=== PATIENT | female | born 1965 | race Caucasian/White ===

== ENCOUNTER 2019-07-22 17:06 | Emergency (ER) | payer OTHER ==
--- OUTSIDE RECORDS SUMMARY | 2019-07-22 17:12 | XMS REPORT | Continuity of Care Document ---
:1965 External Reference #:[id number] Author Name REGINALDO Morrell (transmitted by agent of provider Heather Sanford) Address [address] [facility], [place] [address] Care Team Providers Name Role Phone Faiza Bowen NP - Family Care Team Information [employer] Operator [phone] Danae Ross MD - Family Care Team Information Tr[employer] Bur[employer] Operator [phone] Medicine Problems Active Problems Provider Date Moderate recurrent major depression Luis E Kitchen M.D. Onset: 04/12/2019 Skin sensation disturbance Luis E Kitchen M.D. Onset: 04/12/2019 Amnesia Luis E Kitchen M.D. Onset: 04/12/2019 Social History Type Date Description Comments Sex Unknown Tobacco Use Start: Unknown Never Smoked Cigarettes Smoking Status Reviewed: 06/30/19 Never Smoked Cigarettes ETOH Use Denies alcohol use Tobacco Use Start: Unknown Patient has never smoked grew up with second-hand smoke Allergies, Adverse Reactions, Alerts Active Allergies Reaction Severity Comments Date Penicillin Difficulty breathing, Hives 09/13/2018 Tetracycline Hives 09/13/2018 Sulfa Antibiotics Hives 09/13/2018 Lamictal throat closing Severe 04/12/2019 Medications Active Medications SIG Qnty Indications Ordering Provider Date Estriol Vaginal Cream apply one gram hs 50gm N95.1 Kay 04/04/2019 .5MG/Gram x7 then one gram Yen, PA 1-2 x weekly [place] apply one patch 4units N95.9 Kay 01/10/2019 0.025mg/24HR weekly Yen, PA Patches Weekly [place] Thyroid take one tablet 30tabs E03.9 Kay 11/16/2018 90mg every day on Yen, PA Tablets empty stomach Ginko Biloba 60MG 1 tablet by mouth Suzi Andersen, 11/15/2018 three times daily M.D. prn Prometrium one capsule every 30caps N95.9 Kay 10/05/2018 200mg night at bedtime, Yen PA Capsules 2 weeks on, 2 weeks off Bupropion HCL ER (SR) 1 by mouth every Unknown day 150mg Tablets ER 12HR Vitamin B Complex-C one by mouth Unknown daily Capsules [place] Orotate 2.5 mg daily Unknown Probiotic 1 by mouth every Unknown Capsules day Ortho Thyroid one capsule by Unknown mouth twice daily [facility] Fish Oil two capsules by Unknown 1000mg mouth daily Capsules [facility] Calcium Citrate three tablet by Unknown +D mouth daily [id number] Tablets Vitamin K2-7 once daily Unknown Vitamin E-200 1 by mouth every Unknown 200Unit day Capsules Vitamin D-3 1 by mouth once Unknown 1000Unit weekly Capsules Fenugreek 2 capsules by Unknown mouth daily prn Black Cohosh 3 capsules by Unknown mouth daily prn Nettle 2 capsules by Unknown mouth daily prn Chasteberry 2 capsules by Unknown mouth daily prn Vitanica Cramp Bark prn Unknown Formula Turmeric 1 by mouth twice Unknown 500mg Capsules daily prn Tee's Purse 20 drops in water Unknown Tincture 3 times daily prn Biotin 1 by mouth every Unknown 5mg Capsules day Magnesium 1 by mouth every Unknown 300mg day Capsules Flovent HFA inhale 2 puffs by Unknown 44mcg/Act mouth twice a day Aerosol prn Proair HFA 2 puffs every 4 Unknown 108(90Base) hours as needed mcg/Act Aerosol Immunizations Description No Information Available Vital Signs Date Vital Result Comment 06/30/2019 10:00am Height 63 inches 5'3" Weight 151.12 lb with boots Heart Rate 109 /min BP Systolic 119 mmHg BP Diastolic 81 mmHg Body Temperature 97.3 F O2 % BldC Oximetry 97 % BMI (Body Mass Index) 26.8 kg/m2 05/23/2019 9:53am Height 63 inches 5'3" Weight 150.00 lb Heart Rate 105 /min BP Systolic 100 mmHg BP Diastolic 68 mmHg Body Temperature 98.2 F O2 % BldC Oximetry 96 % BMI (Body Mass Index) 26.6 kg/m2 Results Test Acquired Date Facility Test Result H/L Range Note Laboratory test 04/12/2019 [facility] Erythrocyte Sed 1 mm/Hr Normal 0-29 [address] [place] [address] [phone] C Reactive Protein < 1.00 mg/L Normal <8.01 2 Methylmalonic Acid Mma 0.13 nmol/mL <=0.40 3 Protein 04/12/2019 [facility] Total 6.4 g/dL 6.3 - Electrophoresis [address] Protein(Pep) 7.9 [place] [address] [phone] Albumin 3.7 g/dL 3.4-4.7 Alpha-1 Globulin 0.2 g/dL 0.1-0.3 Alpha-2 Globulin 0.8 g/dL 0.6-1.0 Beta Globulin 0.9 g/dL 0.7-1.2 Gamma Globulin 0.8 g/dL 0.6-1.6 Albumin/Globulin Ratio 1.34 Impression See Comment 4 Laboratory 04/04/2019 [facility] TSH (Thyroid 0.59 Normal 0.34 -5.[address] Stim Horm) mcIU/[place] [address] [phone] T3 Free 3.10 pg/mL Normal 2.5-3.9 Free T4 (Free Thyroxine) 0.93 ng/dL Normal 0.61-1.12 Thyroperoxidase AB 5.50 IU/mL Normal <9 CBC Auto 02/22/2019 [facility] White Blood 5.2 10^3/uL Normal 3.5-10.[address] [place] [address] [phone] Red Blood Count 5.20 10^6/uL High 3.70-4.87 Hemoglobin 15.5 g/dL Normal 12.0-16.0 Hematocrit 46 % Normal 35-47 Mean Corpuscular Volume 89 fL Normal 80-97 Mean Corpuscular Hemoglobin 30 pg Normal 27-31 Mean Corpuscular HGB Conc 34 g/dL Normal 31-36 Red Cell Distribution Width 13 % Normal 10-15 Platelet Count 214 10^3/uL Normal 150-450 Mean Platelet Volume 10.5 fL High 7.4-10.4 Abs Neutrophils 3.0 10^3/uL Normal 1.5-7.7 Abs Lymphocytes 1.7 10^3/uL Normal 1.0-4.8 Abs Monocytes 0.3 10^3/uL Normal 0-0.8 Abs Eosinophils 0.2 10^3/uL Normal 0-0.6 Abs Basophils 0.0 10^3/uL Normal 0-0.2 Abs Nucleated RBC 0.0 10^3/uL Granulocyte % 58.0 % Lymphocyte % 32.5 % Monocyte % 5.5 % Eosinophil % 3.3 % Basophil % 0.7 % Nucleated Red Blood Cells % 0.1 Comp Metabolic 02/22/2019 [facility] Sodium 142 mmol/L Normal 135-[address] [place] [address] [phone] Potassium 4.2 mmol/L Normal 3.5-5.0 Chloride 108 mmol/L Normal 101-111 Co2 Carbon Dioxide 27 mmol/L Normal 22-32 Anion Gap 7 mmol/L Normal 2-11 Glucose 108 mg/dL High 70-100 Blood Urea Nitrogen 19 mg/dL Normal 6-24 Creatinine 0.83 mg/dL Normal 0.51-0.95 BUN/Creatinine Ratio 22.9 High 8-20 Calcium 10.1 mg/dL Normal 8.6-10.3 Total Protein 6.7 g/dL Normal 6.4-8.9 Albumin 4.5 g/dL Normal 3.2-5.2 Globulin 2.2 g/dL Normal 2-4 Albumin/Globulin Ratio 2.0 Normal 1-3 Total Bilirubin 0.40 mg/dL Normal 0.2-1.0 Alkaline Phosphatase 42 U/L Normal 34-104 Alt 13 U/L Normal 7-52 Ast 15 U/L Normal 13-39 Egfr Non- 71.6 >60 Egfr 86.7 >60 5 Laboratory test 02/22/2019 [facility] Ferritin 56.3 ng/mL Normal 11-307 [address] [place] [address] [id number] [phone] Vitamin B12 904 pg/mL Normal 180-914 7 Vitamin D Total 25(Oh) 60.9 ng/mL High 20-50 8 Folic Acid (Folate) > 20.00 ng/mL >3.99 9 Lyme Disease AB 02/22/2019 [facility] IgG Immunoblot Negative Negative Immunoblot WB [address] [place] [address] [phone] IgG detected against None kDa IgM Immunoblot Negative Negative IgM detected against None kDa Lyme Disease Interpretation See Comment 10 Laboratory 01/10/2019 [facility] T3 Reverse 15 ng/dL 10 11 test finding [address] [place] [address] [id number] [phone] MTHFR 01/10/2019 [facility] MTHFR Heterozygous Abnormal Negative Mutation [address] [place] [address] C677T [place] [address] Mutation [phone] MTHFR Interpretation See Comment 12 MTHFR Reviewed By Fozia Shanks M.D. MTHFR [id number] Mutation Heterozygous Abnormal Negative Mthac Interpretation See Comment 13 Mthac Reviewed By Fozia Shanks M.D. 14 Laboratory 01/08/2019 [facility] TSH (Thyroid 1.04 Normal 0.34 -5.60 test finding [address] [place] [address] Stim Horm) mcIU/mL [place], [place] [id number] [phone] Free T4 (Free Thyroxine) 1.01 ng/dL Normal 0.61-1.12 T3 Total 127 ng/dL Normal 87-178 1 Copy Result to: DANAE ROSS ([id number]) 2 Copy Result to: DANAE ROSS ([id number]) 3 ADDITIONAL INFORMATION This test was developed and its performance characteristics determined by [facility] in a manner consistent with CLIA requirements. This test has not been cleared or approved by the U.S. Food and Drug Administration. Test Performed by: [facility] - [facility] [address] [place] [address] 4 RESULT: No apparent monoclonal protein on serum electrophoresis. Test Performed by: [facility] - [facility] [address] [place] [address] 5 Because ethnic data is not always readily available, this report includes an eGFR for both -Americans and non- Americans. The National Kidney Disease Education Program (NKDEP) does not endorse the use of the MDRD equation for patients that are not between the ages of 18 and 70, are , have extremes of body size, muscle mass, or nutritional status, or are non- or non-. According to the National Kidney Foundation, irrespective of diagnosis, the stage of the disease is based on the level of kidney function: Stage Description GFR(mL/min/1.73 m(2)) 1 Kidney damage with normal or decreased GFR 90 2 Kidney damage with mild decrease in GFR 60-89 3 Moderate decrease in GFR 30-59 4 Severe decrease in GFR 15-29 5 Kidney failure <15 (or dialysis) 6 Copy Result to: KAY BARLOW ([phone]) [id number] Normal Range 180 to 914 Indeterminate Range 145 to 180 Deficient Range <145 8 Total 25-Hydroxyvitamin D2 and D3 (25-OH-VitD) <10 ng/mL (severe deficiency) 10-19 ng/mL (mild to moderate deficiency) 20-50 ng/mL (optimum levels) 51-80 ng/mL (increased risk of hypercalciuria) >80 ng/mL (toxicity possible) 9 Copy Result to: KAY BARLOW ([phone] [id number] Specific serologic response to B. burgdorferi infection is not detected, but cannot rule out early infection during which low or undetectable antibody levels to B. burgdorferi may be present. If clinically indicated, a new serum specimen should be submitted in 7-14 days. ADDITIONAL INFORMATION Per CDC criteria, the Lyme IgG Immunoblot is interpreted as positive if IgG-class antibodies are detected to >=5 B. burgdorferi proteins, and the Lyme IgM Immunoblot is interpreted as positive if IgM-class antibodies are detected to >=2 B. burgdorferi proteins. Immunoblot patterns not meeting these criteria should not be interpreted as positive. Epitopes from certain B. burgdorferi proteins (e.g., p41) are conserved across other bacteria, which may lead to the detection of IgM- and/or IgG-class antibodies on the Lyme disease immunoblots in patients without Lyme disease. Immunoblot should only be ordered on specimens that are positive or equivocal by a FDA-licensed Lyme disease antibody screening test (e.g., EIA). Results of the Lyme IgM immunoblot should not be considered in patients with >= 30 days of symptoms. Test Performed by: [facility] [employer] - [address] [address] 11 ADDITIONAL INFORMATION This test was developed and its performance characteristics determined by [facility] in a manner consistent with CLIA requirements. This test has not been cleared or approved by the U.S. Food and Drug Administration. 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 MTHFR C677T carriers are not at increased risk for thrombosis in the absence of hyperhomocysteinemia. In the absence of alternative causes, heterozygous carriers of MTHFR C677T are not at increased risk for hyperhomocysteinemia. Hyperhomocysteinemia is a relatively weak risk factor for both venous thromboembolism and arterial thrombosis. The MTHFR C677T gene mutation test does not detect other causes of hyperhomocysteinemia due to acquired disorders (renal failure, zinc deficiency, leukemia, psoriasis, or antifolate drug therapy). If clinically indicated, suggest Coagulation Consultation 64048 (Thrombophila Profile) to complete the evaluation for an inherited or acquired thrombosing disorder (i.e., thrombophilia). Consider genetic consultation and counseling of potentially affected family members regarding laboratory testing. ADDITIONAL INFORMATION This test is a direct mutation analysis using PCR amplification, signal generation and release by cleavage of sequence specific alleles ([employer], [place], [place], [place]). This test has been modified from the needle felt making machine operator's instructions. Its performance characteristics were determined by [facility] in a manner consistent with CLIA requirements. This test has not been cleared or approved by the U.S. Food and Drug Administration. 13 This individual DOES have the Methylenetetrahydrofolate reductase (MTHAC) Z1403L gene mutation on ONE allele (heterozygous mutant). MTHAC B0382S carriers are not at increased risk for thrombosis in the absence of hyperhomocysteinemia. In the absence of alternative causes, heterozygous carriers of MTHAC V2608V are not at increased risk for hyperhomocysteinemia. Hyperhomocysteinemia is a relatively weak risk factor for both venous thromboembolism and arterial thrombosis. The MTHAC L9779I gene mutation test does not detect other causes of hyperhomocysteinemia due to acquired disorders (renal failure, zinc deficiency, leukemia, psoriasis, or antifolate drug therapy). If clinically indicated, suggest Coagulation Consultation 68027 (Thrombophila Profile) to complete the evaluation for an inherited or acquired thrombosing disorder (i.e., thrombophilia). Consider genetic consultation and counseling of potentially affected family members regarding laboratory testing. ADDITIONAL INFORMATION This test is a direct mutation analysis using PCR amplification, signal generation and release by cleavage of sequence specific alleles ([employer], [place], [place], [place]). This test has been modified from the needle felt making machine operator's instructions. Its performance characteristics were determined by [facility] in a manner consistent with CLIA requirements. This test has not been cleared or approved by the U.S. Food and Drug Administration. 14 This test is a direct mutation analysis using PCR amplification, signal generation and release by cleavage of sequence specific alleles ([employer], [place], [place], [place]). This test has been modified from the needle felt making machine operator's instructions. Its performance characteristics were determined by [facility] in a manner consistent with CLIA requirements. This test has not been cleared or approved by the U.S. Food and Drug Administration. Test Performed by: [address] [address] Procedures Date Code Description Status 04/26/2019 86911 Nerve Conduction 07-08 Studies Completed 04/26/2019 62465 Needle Electromyography Complete, Five Or More Muscles Completed Studied 04/26/2019 94419 Needle Electromyography Each Extremity W/Related Completed Paraspinal Areas 07/09/2017 91055001 Mammogram Completed 09/17/2015 [id number] Colonoscopy Completed Medical Devices Description No Information Available Encounters Type Date Location Provider Dx Diagnosis Office Visit 05/17/2019 [facility] Zhen Linares, R41.3 Other amnesia 10:30a [facility] N.P. R20.2 Paresthesia of skin F33.1 Major depressive disorder, recurrent, moderate Office Visit 04/12/2019 10:30a [facility] Luis E Kitchen, R41.3 Other amnesia [facility] Kemar R20.2 Paresthesia of skin F33.1 Major depressive disorder, recurrent, moderate Office Visit 04/04/2019 10:00a [facility] Kay Yen, F33.1 Major depressive [facility] [place] disorder, recurrent, moderate N95.1 Menopausal and female climacteric states E03.9 Hypothyroidism, unspecified Office Visit 01/10/2019 10:00a [facility] Kay Yen, F33.1 Major depressive [facility] [place] disorder, recurrent, moderate R41.0 Disorientation, unspecified N95.1 Menopausal and female climacteric states E03.9 Hypothyroidism, unspecified Assessments Date Code Description Provider 06/30/2019 N95.9 Unspecified menopausal and perimenopausal Kay Yen , PA disorder 06/30/2019 E03.9 Hypothyroidism, unspecified Kay Yen, PA 06/30/2019 F33.1 Major depressive disorder, recurrent, Kay Yen, PA moderate 05/23/2019 F33.1 Major depressive disorder, recurrent, Kay Yen, PA moderate 05/23/2019 N95.9 Unspecified menopausal and perimenopausal Kay Yen , PA disorder 05/17/2019 R41.3 Other amnesia Zhen Linares, N.P. 05/17/2019 R20.2 Paresthesia of skin Zhen Linares, N.P. 05/17/2019 F33.1 Major depressive disorder, recurrent, Zhen Linares, N.P. moderate 04/26/2019 R20.2 Paresthesia of skin Solitario Baeza MD 04/12/2019 R41.3 Other amnesia Luis E Kitchen M.D. 04/12/2019 R20.2 Paresthesia of skin Luis E Kitchen M.D. 04/12/2019 F33.1 Major depressive disorder, recurrent, Luis E Kitchen M.D. moderate 04/04/2019 F33.1 Major depressive disorder, recurrent, REGINALDO Morrell moderate 04/04/2019 N95.1 Menopausal and female climacteric states Kay Barlow , PA 04/04/2019 E03.9 Hypothyroidism, unspecified Kay Barlow, PA 01/10/2019 F33.1 Major depressive disorder, recurrent, Kay Barlow, PA moderate 01/10/2019 R41.0 Disorientation, unspecified Kay Barlow, PA 01/10/2019 N95.1 Menopausal and female climacteric states Kay Barlow , REGINALDO 01/10/2019 E03.9 Hypothyroidism, unspecified Kay Barlow PA Plan of Treatment Future Appointment(s):09/06/2019 3:30 pm - REGINALDO Morrell at [facility]09/16/2019 8:00 am - Zhen Linares N.P. at [facility]08/01/2019 10:30 am - REGINALDO Morrell at [facility]06/30/2019 - Kay Barlow PAN95.9 Unspecified menopausal and perimenopausal disorderRecommendations:continue your hormones as they are for now.E03.9 Hypothyroidism, eovanvtvbgaL24.1 Major depressive disorder, recurrent, moderateRecommendations:you shared several reasons that your depression might be worse- meds time of year nutrition--so see if you can get any benefit from pushing the keto plan to feed your brain more fat. you'll be speakingwith Court Gutierrez regarding your meds. Functional Status Description No Information Available Mental Status Description No Information Available Referrals Description No Information Available
[2019-07-22 17:31] VITALS: BP 113/74
--- NOTE | 2019-07-22 18:04 | UC ---
Skin Complaint HPI - HPI Summary HPI Summary: Thursday started w/ rash on neck, ears, face. She did use a copper lined pillow but also started taking stronger dose of ginko. Not sure if those caused it. 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 she has been using a few benadryl but not daily; not helping. Used topical steroid but did not help. denies sob or wheezing. - History of Current Complaint Chief Complaint: UCAllergicReaction Time Seen by Provider: 07/22/19 17:53 Stated Complaint: POSS ALLERGIC REACTION-SKIN Hx Obtained From: Patient ?: No Pain Intensity: 2 Pain Scale Used: 0-10 Numeric Location: Face, Ear (Right), Ear (Left) Character: Pruritus, Hives Aggravating Factor(s): Nothing Alleviating Factor(s): Nothing - Allergy/Home Medications Allergies/Adverse Reactions: Allergies Allergy/AdvReac Type Severity Reaction Status Date / Time lamotrigine [From Lamictal] Allergy Anaphylatic Verified 07/22/19 17:31 Shock Penicillins Allergy Rash/BREATHING Verified 07/22/19 17:31 ISSUES Sulfa (Sulfonamide Allergy Rash Verified 07/22/19 17:31 Antibiotics) tetracycline Allergy Rash Verified 07/22/19 17:31 Home Medications: Home Medications Calcium Carb,Gluc/Mag Ox,Gluc [Calcium Magnesium Caplet] 1 each PO DAILY [History Confirmed 07/22/19] Estradiol 0.025 MG PATCH (NF) 1 patch TRANSDERM WEEKLY 07/22/19 [History Confirmed 07/22/19] Estradiol VAG CM (NF) [Estrace VAG CM (NF)] 1 applic VAGINAL SEE INSTRUCTIONS [History Confirmed 07/22/19] L.acidoph,Paracasei, B.lactis [Probiotic] 1 each PO BID 07/22/19 [History Confirmed 07/22/19] Nutritional Lithiam 2.5 mg PO DAILY 07/22/19 [History Confirmed 07/22/19] [place]-3 Fatty Acids/Fish Oil [Fish Oil 1,000 mg Softgel] 1 each PO BID 07/22/19 [History Confirmed 07/22/19] Progesterone, Micronized [Prometrium] 200 mg PO SEE INSTRUCTIONS 07/22/19 [ History Confirmed 07/22/19] Thyroid,Pork [[place] Thyroid] 90 mg PO BEDTIME 07/22/19 [History Confirmed 07/22] Vitamin B Complex CAP* [B Complex CAP*] 1 cap PO DAILY 07/22/19 [History Confirmed 07/22/19] Vitamin E 200 unit PO BID 07/22/19 [History Confirmed 07/22/19] Vitamin K2 40 mcg PO DAILY 07/22/19 [History Confirmed 07/22/19] PMH/Surg Hx/FS Hx/Imm Hx - Additional Past Medical History Additional PMH: 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 Respiratory: Negative: Shortness Of Breath, Other - wheezing Cardiovascular: Negative: Chest Pain Gastrointestinal: Negative: Vomiting Musculoskeletal: Positive: Edema - ears. Negative: Myalgia Neurological: Negative: Headache, Weakness Physical Exam Triage Information Reviewed: Yes Appearance: Well-Appearing Vital Signs: Initial Vital Signs Temp 98.9 F 07/22/19 17:26 Pulse 81 07/22/19 17:26 Resp 18 07/22/19 17:26 BP 113/74 07/22/19 17:26 Pulse Ox 100 07/22/19 17:26 Vital Signs Reviewed: Yes ENT: Positive: Uvula midline Neck: Positive: Supple Respiratory: Positive: No respiratory distress. Negative: Wheezing Cardiovascular Exam: Normal Neurological: Positive: Alert Skin: Positive: Rashes - neck, chest, back, ears. Course/Dx - Course Course Of Treatment: 5 days of itchy skin on back of neck, back, ears and a little on face. Only difference was taking stronger dose of Ginko Baloba and using a new pillow for a week that has 'copper fibers' in it. 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 No respiratory involvement. VITALS GOOD. She has already taken benadryl but not daily. Topical steroid did not work. Plan is to give steroid burst and cont. benadryl around the clock. SHe knows to go to ED if any new changes occur. - Differential Diagnoses - Skin Complaint Differential Diagnoses: Drug Rash, Local Allergic Reaction, Medication; Adverse Reaction - Diagnoses Provider Diagnosis: U[facility] Discharge ED - Sign-Out/Discharge Documenting (check all that apply): Patient Departure All imaging exams completed and their final reports reviewed: No Studies - Discharge Plan Condition: Good Disposition: HOME Prescriptions: predniSONE [Prednisone 20 MG TAB] 20 mg PO DAILY 5 Days #5 tablet raNITIdine HCl [Acid Control] 150 mg PO DAILY 10 Days #10 tablet Patient Education Materials: [facility] (ED) Referrals: Danae Ross MD [Primary Care Provider] - Additional Instructions: TRY ABSTAINING FROM THE PILLOW FOR A WEEK. CONTINUE TAKING OTC BENADRYL. - Billing Disposition and Condition Condition: GOOD Disposition: Home
== END 2019-07-22 18:20 | disposition home or self-care (01) ==
LOC: UCEAST 17:06
DX: L50.9 Urticaria, unspecified (principal); L51.1 Stevens-Johnson syndrome; Z88.8 Allergy status to other drugs, medicaments and biological substances; Z88.0 Allergy status to penicillin; Z88.2 Allergy status to sulfonamides; Z88.1 Allergy status to other antibiotic agents
CPT/HCPCS: 99212; G0463

== ENCOUNTER 2019-10-02 10:07 | Emergency (ER) | payer OTHER ==
--- OUTSIDE RECORDS SUMMARY | 2019-10-02 10:13 | XMS REPORT | Continuity of Care Document ---
:1965 External Reference #:[id number] Author Name Zhen Linares N.P. (transmitted by agent of provider Graciela Mckinley) Address [address] [facility], [place] [address] Care Team Providers Name Role Phone Faiza Bowen NP - Family Care Team Information Otr Driver [phone] Danae Ross MD - Family Care Team Information Otr Driver [phone] Medicine Problems Active Problems Provider Date Moderate recurrent major depression Luis E Kitchen M.D. Onset: 04/12/2019 Skin sensation disturbance Luis E Kitchen M.D. Onset: 04/12/2019 Amnesia Luis E Kitchen M.D. Onset: 04/12/2019 Social History Type Date Description Comments Sex Unknown Tobacco Use Start: Unknown Never Smoked Cigarettes Smoking Status Reviewed: 09/16/19 Never Smoked Cigarettes ETOH Use Denies alcohol use Tobacco Use Start: Unknown Patient has never smoked grew up with second-hand smoke Allergies, Adverse Reactions, Alerts Active Allergies Reaction Severity Comments Date Penicillin Difficulty breathing, Hives 09/13/2018 Tetracycline Hives 09/13/2018 Sulfa Antibiotics Hives 09/13/2018 Lamictal throat closing Severe 04/12/2019 Medications Active Medications SIG Qnty Indications Ordering Provider Date [place] Thyroid 1 by mouth every 30tabs E03.9 Kay 07/06/2019 60mg day Yen, [place] Tablets Estriol Vaginal Cream apply one gram hs 50gm N95.1 Kay 04/04/2019 .5MG/Gram x7 then one gram Yen, [place] 1-2 x weekly [place] apply one patch 4units N95.9 Kay 01/10/2019 0.025mg/24HR weekly Yen, [place] Patches Weekly Prometrium one capsule every 30caps N95.9 Kay 10/05/2018 200mg night at bedtime, REGINALDO Barlow Capsules 2 weeks on, 2 weeks off Bupropion HCL take 1 tablet by Unknown 100mg mouth daily Tablets Vitamin B Complex-C one by mouth Unknown daily Capsules [place] Orotate 2.5 mg daily Unknown Probiotic 1 by mouth every Unknown Capsules day Ortho Thyroid one capsule by Unknown mouth twice daily [facility] Fish Oil two capsules by Unknown 1000mg mouth daily Capsules [facility] Calcium Citrate three tablet by Unknown +D mouth daily [id number] Tablets Vitamin K2-7 once daily Unknown Vitamin [...] mouth twice Unknown 500mg Capsules daily prn Magnesium 1 by mouth every Unknown 300mg day Capsules Flovent HFA inhale 2 puffs by Unknown 44mcg/Act mouth twice a day Aerosol prn Proair HFA 2 puffs every 4 Unknown 108(90Base) hours as needed mcg/Act Aerosol Immunizations Description No Information Available Vital Signs Date Vital Result Comment 09/16/2019 7:50am Height 63 inches 5'3" Weight 148.00 lb Heart Rate 72 /min BP Systolic Sitting 120 mmHg BP Diastolic Sitting 74 mmHg Respiratory Rate 18 /min BMI (Body Mass Index) 26.2 kg/m2 09/06/2019 3:29pm Height 63 inches 5'3" Weight 150.00 lb Heart Rate 117 /min BP Systolic 124 mmHg BP Diastolic 80 mmHg Body Temperature 97.8 F O2 % BldC Oximetry 98 % BMI (Body Mass Index) 26.6 kg/m2 Results Test Acquired Date Facility Test Result H/L Range Note Laboratory test 09/06/2019 [facility] TSH 2.35 Normal 0.34- 5.[address] (Thyroid mcIU/[place] [address] Stim [phone] Horm) T3 Free 3.10 pg/mL Normal 2.5-3.9 Free T4 (Free Thyroxine) 0.78 ng/dL Normal 0.61-1.12 Estradiol 608 pg/mL 1 Progesterone 1.1 ng/mL 2 Dhea Sulfate 88 g/dL 16-195 3 Testosterone Free 09/06/2019 [facility] Free 0.37 0.06-0.90 4 & Total Testosterone ng/[place] [address] ng/dl [phone] Testosterone 23 ng/dL 8-60 5 Laboratory test 09/06/2019 [facility] FSH (Follicle 11.3 mIU/mL [address] Stim Hormone) [place] [address] [phone] Laboratory test 08/12/2019 [facility] TSH (Thyroid 1.50 Normal 0.34- [address] DR[address] Stim Horm) mcIU/mL 5.60 [place] [address] [phone] T3 Free 3.00 pg/mL Normal 2.5-3.9 Free T4 (Free Thyroxine) 0.82 ng/dL Normal 0.61-1.12 Laboratory 07/07/2019 [facility] TSH (Thyroid 0.36 Normal 0.34 -5.[address] Stim Horm) mcIU/[place] [address] [phone] T3 Free 4.50 pg/mL High 2.5-3.9 Free T4 (Free Thyroxine) 1.22 ng/dL High 0.61-1.12 Laboratory test 06/30/2019 [facility] TSH (Thyroid 0.14 Low 0.34-5.[address] Stim Horm) mcIU/[place] [address] [phone] T3 Free 7.90 pg/mL High 2.5-3.9 Free T4 (Free Thyroxine) 1.59 ng/dL High 0.61-1.12 T3 Reverse 22 ng/dL 10-24 7 Estradiol <40 pg/mL 8 Progesterone 0.4 ng/mL 9 Testosterone 06/30/2019 [facility] Free 0.20 0.06-0.90 10 Free & Total 101 Testosterone ng/[place] [address] ng/dl [phone] Testosterone 11 ng/dL 8-60 11 Laboratory test 06/30/2019 [facility] Dhea Sulfate 63 g/dL 16-[address] [place], [place] [address] [phone] Estradiol, Confirmatory, S 21 pg/mL 13 Laboratory test 04/12/2019 [facility] Erythrocyte Sed 1 mm/Hr Normal 0-[address] [place] [address] [phone] C Reactive Protein < 1.00 mg/L Normal <8.01 15 Methylmalonic Acid Mma 0.13 nmol/mL <=0.40 16 Protein 04/12/2019 [facility] Total 6.4 g/dL 6.3 - Electrophoresis Protein(Pep) 7.9 [place], [place] [address] [phone] Albumin 3.7 g/dL 3.4-4.7 Alpha-1 Globulin 0.2 g/dL 0.1-0.3 Alpha-2 Globulin 0.8 g/dL 0.6-1.0 Beta Globulin 0.9 g/dL 0.7-1.2 Gamma Globulin 0.8 g/dL 0.6-1.6 Albumin/Globulin Ratio 1.34 Impression See Comment 17 Laboratory 04/04/2019 [facility] TSH (Thyroid 0.59 Normal 0.34 -5.[address] Stim Horm) mcIU/mL [place], [place] [id number] [phone] T3 Free 3.10 pg/mL Normal 2.5-3.9 Free T4 (Free Thyroxine) 0.93 ng/dL Normal 0.61-1.12 Thyroperoxidase AB 5.50 IU/mL Normal <9 1 Estradiols <40 pg/mL are sent to a reference lab for low range testing. Postmenopausal Females < 20 Ovulating females: by day in cycle relative to LH Peak Follicular phase - 12 10-50 - 4 60-200 Mid-cycle - 1 120-375 Luteal phase + 2 50-155 + 6 60-260 + 12 15-115 2 Female reference ranges for Progesterone: Follicular phase.......0.3 - 1.5 ng/ml Mid-luteal phase.......5.2 - 18.5 ng/ml Postmenopausal.........< 0.8 ng/ml 1st trimester.........4.7 - 50.0 ng/ml 2nd trimester.........19.4 - 45.3 ng/ml 3 Test Performed by: [facility] [place] [place] [address] Side Piece Coverer: Oc Lopez M.D. Ph.D.; CLIA# [id number] 4 ADDITIONAL INFORMATION Testing performed by [facility]. This test was developed and its performance characteristics determined by [facility] in a manner consistent with CLIA requirements. This test has not been cleared or approved by the U.S. Food and Drug Administration. 5 ADDITIONAL INFORMATION Testing performed by Liquid Chromatography-Tandem Mass Spectrometry (LC-MS/MS). This test was developed and its performance characteristics determined by [facility] in a manner consistent with CLIA requirements. This test has not been cleared or approved by the U.S. Food and Drug Administration. Test Performed by: [facility] [place] [address] Side Piece Coverer: Oc Lopez M.D. Ph.D.; CLIA# [id number] 6 Normally menstruating females - Follicular phase 3 - 9 - Mid-cycle peak 4 - 23 - Luteal phase 1 - 6 Postmenopausal females 16 - 114 7 ADDITIONAL INFORMATION This test was developed and its performance characteristics determined by [facility] in a manner consistent with CLIA requirements. This test has not been cleared or approved by the U.S. Food and Drug Administration. Test Performed by: [facility] [place] [address] Side Piece Coverer: Oc Lopez M.D. Ph.D.; CLIA# [id number] 8 Estradiols <40 pg/mL are sent to a reference lab for low range testing. Postmenopausal Females < 20 Ovulating females: by day in cycle relative to LH Peak Follicular phase - 12 10-50 - 4 60-200 Mid-cycle - 1 120-375 Luteal phase + 2 50-155 + 6 60-260 + 12 15-115 9 Female reference ranges for Progesterone: Follicular phase.......0.3 - 1.5 ng/ml Mid-luteal phase.......5.2 - 18.5 ng/ml Postmenopausal.........< 0.8 ng/ml 1st trimester.........4.7 - 50.0 ng/ml 2nd trimester.........19.4 - 45.3 ng/ml 10 ADDITIONAL INFORMATION Testing performed by [facility]. This test was developed and its performance characteristics determined by [facility] in a manner consistent with CLIA requirements. This test has not been cleared or approved by the U.S. Food and Drug Administration. 11 ADDITIONAL INFORMATION Testing performed by Liquid Chromatography-Tandem Mass Spectrometry (LC-MS/MS). This test was developed and its performance characteristics determined by [facility] in a manner consistent with CLIA requirements. This test has not been cleared or approved by the U.S. Food and Drug Administration. Test Performed by: [facility] [place] [address] Side Piece Coverer: Oc Lopez M.D. Ph.D.; CLIA# [id number] 12 Test Performed by: [facility] [place] [address] Side Piece Coverer: Oc Lopez M.D. Ph.D.; CLIA# [id number] 13 REFERENCE VALUE Premenopausal: 15-350 (E2 levels vary widely through the menstrual cycle.) Postmenopausal: <10 ADDITIONAL INFORMATION This test was developed and its performance characteristics determined by [facility] in a manner consistent with CLIA requirements. This test has not been cleared or approved by the U.S. Food and Drug Administration. Test Performed by: [place] [address] Side Piece Coverer: Oc Lopez M.D. Ph.D.; CLIA# [id number] 14 Copy Result to: DANAE ROSS ([id number]) 15 Copy Result to: DANAE ROSS ([id number]) 16 ADDITIONAL INFORMATION This test was developed and its performance characteristics determined by [facility] in a manner consistent with CLIA requirements. This test has not been cleared or approved by the U.S. Food and Drug Administration. Test Performed by: [address] [address] 17 RESULT: No apparent monoclonal protein on serum electrophoresis. Test Performed by: [address] [address] Procedures Date Code Description Status 04/26/2019 97011 Nerve Conduction 07-08 Studies Completed 04/26/2019 81748 Needle Electromyography Complete, Five Or More Muscles Completed Studied 04/26/2019 29515 Needle Electromyography Each Extremity W/Related Completed Paraspinal Areas 07/09/2017 13302945 Mammogram Completed 09/17/2015 [id number] Colonoscopy Completed Medical Devices Description No Information Available Encounters Type Date Location Provider Dx Diagnosis Office Visit 06/30/2019 [facility] N95.9 Unspecified menopausal 10:00a [facility] Yen, [place] and perimenopausal disorder E03.9 Hypothyroidism, unspecified F33.1 Major depressive disorder, recurrent, moderate Office Visit 05/23/2019 10:00a [facility] Kay Barlow, F33.1 Major depressive [facility] [place] disorder, recurrent, moderate N95.9 Unspecified menopausal and perimenopausal disorder Office Visit 05/17/2019 10:30a [facility] Zhen Linares, R41.3 Other am[facility]ia [facility] N.P. R20.2 Paresthesia of skin F33.1 Major depressive disorder, recurrent, moderate Office Visit 04/12/2019 10:30a [facility] Luis E Kitchen, R41.3 Other amnesia [facility] Kemar R20.2 Paresthesia of skin F33.1 Major depressive disorder, recurrent, moderate Office Visit 04/04/2019 10:00a [facility] Kay Barlow, F33.1 Major depressive [facility] [place] disorder, recurrent, moderate N95.1 Menopausal and female climacteric states E03.9 Hypothyroidism, unspecified Assessments Date Code Description Provider 09/16/2019 F33.1 Major depressive disorder, recurrent, Zhen Linares, N.P. moderate 09/16/2019 R41.3 Other amnesia Zhen Linares, N.P. 09/16/2019 R20.2 Paresthesia of skin Zhen Linares, N.P. 09/06/2019 N95.9 Unspecified menopausal and perimenopausal Kay Yen , PA disorder 09/06/2019 R53.83 Other fatigue Kay Yen, PA 09/06/2019 E03.9 Hypothyroidism, unspecified Kay Yen, PA 09/06/2019 F33.1 Major depressive disorder, recurrent, Kay Yen, [place] moderate 06/30/2019 N95.9 Unspecified menopausal and perimenopausal Kay Yen , [place] disorder 06/30/2019 E03.9 Hypothyroidism, unspecified Kay Yen, PA 06/30/2019 F33.1 Major depressive disorder, recurrent, Kay Yen, [place] moderate 05/23/2019 F33.1 Major depressive disorder, recurrent, Kay Yen, [place] moderate 05/23/2019 N95.9 Unspecified menopausal and perimenopausal REGINALDO Morrell disorder 05/17/2019 R41.3 Other amnesia Zhen Linares, [...] 04/04/2019 N95.1 Menopausal and female climacteric states REGINALDO Morrell 04/04/2019 E03.9 Hypothyroidism, unspecified REGINALDO Morrell Plan of Treatment Future Appointment(s):01/30/2020 9:15 am - Luis E Kitchen M.D. at [facility]11/07/2019 8:30 am - REGINALDO Morrell at [facility]10/04/2019 11:00 am - REGINALDO Morrell at [facility]09/16/2019 - Zhen Linares, N.P.F33.1 Major depressive disorder, recurrent, bghuyrdyA90.3 Other amnesiaFollow up:3-4 fkkjlxL68.2 Paresthesia of skin Functional Status Description No Information Available Mental Status Description No Information Available Referrals Description No Information Available
--- OUTSIDE RECORDS SUMMARY | 2019-10-02 10:13 | XMS REPORT | Continuity of Care Document ---
:1965 External Reference #:[id number] Author Name REGINALDO Morrell (transmitted by agent of provider Sarah Freeman) Address [address], [place] [address] Care Team Providers Name Role Phone Faiza Bowen NP - Family Care Team Information Bike Assembler [phone] Danae Ross MD - Family Care Team Information Bike Assembler [phone] Medicine Problems Active Problems Provider Date Moderate recurrent major depression Luis E Kitchen M.D. Onset: 04/12/2019 Skin sensation disturbance Luis E Kitchen M.D. Onset: 04/12/2019 Amnesia Luis E Kitchen M.D. Onset: 04/12/2019 Social History Type Date Description Comments Sex Unknown Tobacco Use Start: Unknown Never Smoked Cigarettes Smoking Status Reviewed: 09/06/19 Never Smoked Cigarettes ETOH Use Denies alcohol use Tobacco Use Start: Unknown Patient has never smoked grew up with second-hand smoke Allergies, Adverse Reactions, Alerts Active Allergies Reaction Severity Comments Date Penicillin Difficulty breathing, Hives 09/13/2018 Tetracycline Hives 09/13/2018 Sulfa Antibiotics Hives 09/13/2018 Lamictal throat closing Severe 04/12/2019 Medications Active Medications SIG Qnty Indications Ordering Provider Date [place] Thyroid 1 by mouth every 30tabs E03.9 [...] Complex-C one by mouth Unknown daily Capsules [place] Orotate 2.5 mg daily Unknown Probiotic 1 by mouth every Unknown Capsules day Ortho Thyroid one capsule by Unknown mouth twice daily [facility] Fish Oil two capsules by Unknown 1000mg mouth daily Capsules [facility] Calcium Citrate three tablet by Unknown +D mouth daily [id number] Tablets Vitamin K2-7 once daily Unknown Vitamin [...] Available Vital Signs Date Vital Result Comment 09/06/2019 3:29pm Height 63 inches 5'3" Weight 150.00 lb Heart Rate 117 /min BP Systolic 124 mmHg BP Diastolic 80 mmHg Body Temperature 97.8 F O2 % BldC Oximetry 98 % BMI (Body Mass Index) 26.6 kg/m2 06/30/2019 10:00am Height 63 inches 5'3" Weight 151.12 lb with boots Heart Rate 109 /min BP Systolic 119 mmHg BP Diastolic 81 mmHg Body Temperature 97.3 F O2 % BldC Oximetry 97 % BMI (Body Mass Index) 26.8 kg/m2 Results Test Acquired Date Facility Test Result H/L Range Note Laboratory test 08/12/2019 [facility] TSH 1.50 Normal 0.34- 5.[address] (Thyroid mcIU/[place] [address] Stim [phone] Horm) T3 Free 3.00 pg/mL Normal 2.5-3.9 Free T4 (Free Thyroxine) 0.82 ng/dL Normal 0.61-1.12 Laboratory 07/07/2019 [facility] TSH (Thyroid 0.36 Normal 0.34 -5.[address] Stim Horm) mcIU/[place] [address] [phone] T3 Free 4.50 pg/mL High 2.5-3.9 Free T4 (Free Thyroxine) 1.22 ng/dL High 0.61-1.12 Laboratory test 06/30/2019 [facility] TSH (Thyroid 0.14 Low 0.34-5.[address] Stim Horm) mcIU/[place] [address] [phone] T3 Free 7.90 pg/mL High 2.5-3.9 Free T4 (Free Thyroxine) 1.59 ng/dL High 0.61-1.12 T3 Reverse 22 ng/dL 10-24 1 Estradiol <40 pg/mL 2 Progesterone 0.4 ng/mL 3 Testosterone Free 06/30/2019 [facility] Free 0.20 0.06-0.90 4 & Total Testosterone ng/[place] [address] ng/dl [phone] Testosterone 11 ng/dL 8-60 5 Laboratory test 06/30/2019 [facility] Dhea Sulfate 63 g/dL 16-[address] [place] [address] [phone] Estradiol, Confirmatory, S 21 pg/mL 7 Laboratory test 04/12/2019 [facility] Erythrocyte Sed 1 mm/Hr Normal 0-[address] [place], [place] [id number] [phone] C Reactive Protein < 1.00 mg/L Normal <8.01 9 Methylmalonic Acid Mma 0.13 nmol/mL <=0.40 10 Protein 04/12/2019 [facility] Total 6.4 g/dL 6.3 - Electrophoresis [address] [facility] Protein(Pep) 7.9 [place] [address] [phone] Albumin 3.7 g/dL 3.4-4.7 Alpha-1 Globulin 0.2 g/dL 0.1-0.3 Alpha-2 Globulin 0.8 g/dL 0.6-1.0 Beta Globulin 0.9 g/dL 0.7-1.2 Gamma Globulin 0.8 g/dL 0.6-1.6 Albumin/Globulin Ratio 1.34 Impression See Comment 11 Laboratory 04/04/2019 [facility] TSH (Thyroid 0.59 Normal 0.34 -5.60 test [address] Stim Horm) mcIU/[place] [address] [phone] T3 Free 3.10 pg/mL Normal 2.5-3.9 Free T4 (Free Thyroxine) 0.93 ng/dL Normal 0.61-1.12 Thyroperoxidase AB 5.50 IU/mL Normal <9 1 ADDITIONAL INFORMATION This test was developed and its performance characteristics determined by [facility] in a manner consistent with CLIA requirements. This test has not been cleared or approved by the U.S. Food and Drug Administration. Test Performed by: [facility] [address] [place] [address] Pulmonologist/Intensivist: Oc Lopez M.D. Ph.D.; CLIA# [id number] 2 Estradiols <40 pg/mL are sent to a reference lab for low range testing. Postmenopausal Females < 20 Ovulating females: by day in cycle relative to LH Peak Follicular phase - 12 10-50 - 4 60-200 Mid-cycle - 1 120-375 Luteal phase + 2 50-155 + 6 60-260 + 12 15-115 3 Female reference ranges for Progesterone: Follicular phase.......0.3 - 1.5 ng/ml Mid-luteal phase.......5.2 - 18.5 ng/ml Postmenopausal.........< 0.8 ng/ml 1st trimester.........4.7 - 50.0 ng/ml 2nd trimester.........19.4 - 45.3 ng/ml 4 ADDITIONAL INFORMATION Testing performed by [facility]. This test was developed and its performance characteristics determined by [facility] in a manner consistent with CLIA requirements. This test has not been cleared or approved by the U.S. Food and Drug Administration. 5 ADDITIONAL INFORMATION Testing performed by Liquid Chromatography-Tandem Mass Spectrometry (LC-MS/MS). This test was developed and its performance characteristics determined by [facility] in a manner consistent with CLIA requirements. This test has not been cleared or approved by the U.S. Food and Drug Administration. Test Performed by: [facility] [place] [address] Pulmonologist/Intensivist: Oc Lopez M.D. Ph.D.; CLIA# [id number] 6 Test Performed by: [facility] [place] [address] Pulmonologist/Intensivist: Oc Lopez M.D. Ph.D.; CLIA# [id number] 7 REFERENCE VALUE Premenopausal: 15-350 (E2 levels vary widely through the menstrual cycle.) Postmenopausal: <10 ADDITIONAL INFORMATION This test was developed and its performance characteristics determined by [facility] in a manner consistent with CLIA requirements. This test has not been cleared or approved by the U.S. Food and Drug Administration. Test Performed by: [facility] [place] [address] Pulmonologist/Intensivist: Oc Lopez M.D. Ph.D.; CLIA# [id number] 8 Copy Result to: FRANCKGEN DANAE ([id number]) 9 Copy Result to: SCOTT DANAE ([id number]) 10 ADDITIONAL INFORMATION This test was developed and its performance characteristics determined by [facility] in a manner consistent with CLIA requirements. This test has not been cleared or approved by the U.S. Food and Drug Administration. Test Performed by: [facility] [address] [place] [address] 11 RESULT: No apparent monoclonal protein on serum electrophoresis. Test Performed by: [facility] [place] [address] [place] [address] Procedures Date Code Description Status 04/26/2019 04235 Nerve Conduction 07-08 Studies Completed 04/26/2019 76640 Needle Electromyography Complete, Five Or More Muscles Completed Studied 04/26/2019 18463 Needle Electromyography Each Extremity W/Related Completed Paraspinal Areas 07/09/2017 01231558 Mammogram Completed 09/17/2015 [id number] Colonoscopy Completed Medical Devices Description No Information Available Encounters Type Date Location Provider Dx Diagnosis Office Visit 06/30/2019 [facility] Kay N95.9 Unspecified menopausal 10:00a [facility] REGINALDO Barlow and perimenopausal disorder E03.9 Hypothyroidism, unspecified F33.1 Major depressive disorder, recurrent, moderate Office Visit 05/23/2019 10:00a [facility] Kay Barlow F33.1 Major depressive [facility] [place] disorder, recurrent, moderate N95.9 Unspecified menopausal and perimenopausal disorder Office Visit 05/17/2019 10:30a [facility] Zhen Linares, R41.3 Other amnesia Services [facility] N.PDiana R20.2 Paresthesia of skin F33.1 Major depressive disorder, recurrent, moderate Office Visit 04/12/2019 10:30a [facility] Luis E Kitchen R41.3 Other am[facility]ia [facility] Kemar R20.2 Paresthesia of skin F33.1 Major depressive disorder, recurrent, moderate Office Visit 04/04/2019 10:00a [facility] Kay Yen, F33.1 Major depressive [facility] [place] disorder, recurrent, moderate N95.1 Menopausal and female climacteric states E03.9 Hypothyroidism, unspecified Assessments Date Code Description Provider 09/06/2019 N95.9 Unspecified menopausal and perimenopausal Kay [...] moderate 04/04/2019 F33.1 Major depressive disorder, recurrent, Kay Yen, [place] moderate 04/04/2019 N95.1 Menopausal and female climacteric states Kay Yen , [place] 04/04/2019 E03.9 Hypothyroidism, unspecified Kay Yen, [place] Plan of Treatment Future Appointment(s):11/07/2019 8:30 am - REGINALDO Morrell at [facility]10/04/2019 11:00 am - REGINALDO Morrell at [facility]09/16/2019 8:00 am - Zhen Linares N.P. at [facility]09/06/2019 - Kay Barlow, PAN95.9 Unspecified menopausal and perimenopausal oncphlmxA15.83 Other tcdjqdiN68.9 Hypothyroidism, zuhduwzshlzK41.1 Major depressive disorder, recurrent, moderateRecommendations: please work on simple Paleo for August and then use keto on and off -consider 2 months on ? great for your brain nutrition--so see if you can get any benefit from pushing the keto plan to feed your brain more fat. try some walking this next month! Functional Status Description No Information Available Mental Status Description No Information Available Referrals Description No Information Available
[2019-10-02 10:17] VITALS: BP 138/74
--- NOTE | 2019-10-02 10:32 | UC ---
Throat Pain/Nasal Juan HPI - HPI Summary HPI Summary: 54 y/o female presents to the urgent care c/o sinus congestion w/ green discharge, ROBBINS, moderate PND for the past 2 weeks. Pt reports she has taken oTC medications Sudafed PO and Ibuprofen w/o any improvement. Yesterday she woke up w/ her left eye red and crusting yellowish drainage. sinus pain and ROBBINS is 4/ 10. Pt states dry cough. Pt denies fever, SOB, dizziness, chest pain,abdominal pain,N/V/D. - History of Current Complaint Chief Complaint: UCGeneralIllness Stated Complaint: SINUS ISSUE CHEST CONGESTION Time Seen by Provider: 10/02/19 10:22 Hx Obtained From: Patient ?: No - menopose Onset/Duration: Gradual Onset, Lasting Weeks - 2 weeks, Still Present, Worse Since - 2 days Severity: Moderate Pain Intensity: 6 - sinus pain and ROBBINS Pain Scale Used: 0-10 Numeric Cough: Nonproductive Associated Signs & Symptoms: Positive: Sinus Discomfort, Nasal Discharge - yellowish, Other - left eye red w/ crusting yellowish discharge. Negative: Dysphagia, Wheezing, Fever - Epiglottits Risk Factors Epiglottis Risk Factors: Negative - Allergies/Home Medications Allergies/Adverse Reactions: Allergies Allergy/AdvReac Type Severity Reaction Status Date / Time lamotrigine [From Lamictal] Allergy Anaphylatic Verified 10/02/19 10:18 Shock Penicillins Allergy Rash/BREATHING Verified 10/02/19 10:18 ISSUES Sulfa (Sulfonamide Allergy Rash Verified 10/02/19 10:18 Antibiotics) tetracycline Allergy Rash Verified 10/02/19 10:18 Home Medications: Home Medications Ibuprofen 400 mg PO ONCE PRN 10/02/19 [History Confirmed 10/02/19] Pseudoephedrine HCl [Sudafed 12 Hour] 1 tab PO ONCE PRN 10/02/19 [History Confirmed 10/02/19] guaiFENesin [Guaifenesin] 1 tab PO ONCE PRN 10/02/19 [History Confirmed 10/02/19 ] PMH/Surg Hx/FS Hx/Imm Hx Previously Healthy: Yes Endocrine History: Hypothyroidism Respiratory History: Asthma GI/ History: Gastroesophageal Reflux Psychological History: Anxiety, Depression - Surgical History Surgical History: Yes Surgery Procedure, Year, and Place: FACIAL SUTURES - Family History Known Family History: Positive: Hypertension Family History: lung cancer - Social History Occupation: Employed Full-time Lives: With Family Alcohol Use: None Substance Use Type: None Smoking Status (MU): Never Smoked Tobacco Review of Systems All Other Systems Reviewed And Are Negative: Yes Constitutional: Positive: Fatigue Skin: Positive: Negative Eyes: Positive: Drainage - yellowish drainage, Eye Redness - left eye red ENT: Positive: Ear Ache - B/L ear pressure, Nasal Discharge - yellowish, Sinus Congestion, Sinus Pain/Tenderness, Other - moderate PND Respiratory: Positive: Cough - dry Cardiovascular: Positive: Negative Gastrointestinal: Positive: Negative Genitourinary: Positive: Negative Motor: Positive: Negative Neurovascular: Positive: Negative Musculoskeletal: Positive: Negative Neurological: Positive: Headache Psychological: Positive: Negative Is Patient Immunocompromised?: No Physical Exam - Summary Physical Exam Summary: Vitals: reviewed General: Well developed, well-nourished female patient with NAD. Head and face: Normocephalic and atraumatic, Positive tenderness over the frontal and maxillary sinuses.. Eyes: Positive: Left Conjunctiva Inflamed - Visual acuity: WNL,Visual griffin: full to confrontation. PERRLA, EOMI intact w/out limitation or complaint of pain. eyelashes clear. mild tearing and yellowish drainage observed. No ciliary flush. No chemosis, No photophobia. Normal fundoscopic exam; no proptosis, exophthalmos, nystagmus. ENT: Ears and TM with normal limits. Nose: edematous and erythematous nasal mucosa with yellowish discharge and erythematous mucosa. Pharynx with erythema, no exudate. yellowish PND Neck: Supple, no JVD, no carotid bruits and no lymphadenopathy. Lungs: clear, no rales, no rhonchi, no wheezes. CVS: RRR, S1 and S2 present no murmurs or gallops appreciated. Abdomen: soft nontender with positive bowel sounds. Extremities: no edema noted. Neuro: WNL. Skin: warm and dry Triage Information Reviewed: Yes Vital Signs: Initial Vital Signs Temp 99 F 10/02/19 10:15 Pulse 100 10/02/19 10:15 Resp 18 10/02/19 10:15 BP 138/74 10/02/19 10:15 Pulse Ox 98 10/02/19 10:15 Throat Pain/Nasal Course/Dx - Course Course Of Treatment: 54 y/o female presents to the urgent care c/o sinus congestion w/ green discharge, ROBBINS, moderate PND for the past 2 weeks. Pt reports she has taken oTC medications Sudafed PO and Ibuprofen w/o any improvement. Yesterday she woke up w/ her left eye red and crusting yellowish drainage. sinus pain and ROBBINS is 4/ 10. Pt states dry cough. Pt denies fever, SOB, dizziness, chest pain,abdominal pain,N/V/D. Hx obtained. Pt Acute bacterial sinusitis and left eye bacterial conjunctivitis on examination with 2 weeks of symptoms getting worse. Pt w/ Multiple antibiotic allergies. She has taken Keflex PO in the past w/o any allergic reaction. Rx Keflex PO and Ciprofloxacin ophthalmic drops and flonase nasal spray. Discharge instructions explained to Pt. Advised to Return to the clinic or PCP if symptoms do not improve. Or f/u with Editor[employer] Writer Dr Conor Lazaro for further management. Pt understood and agreed with plan of care. - Differential Dx/Diagnosis Differential Diagnosis/HQI/PQRI: Influenza, Laryngitis, Mononucleosis, Pharyngitis, Sinusitis, Tonsillitis, URI, Other - conjunctivitis Provider Diagnosis: Acute bacterial sinusitis, Bacterial conjunctivitis of left eye Discharge ED - Sign-Out/Discharge Documenting (check all that apply): Patient Departure - D/C home All imaging exams completed and their final reports reviewed: No Studies - Discharge Plan Condition: Stable Disposition: HOME Prescriptions: Cephalexin CAP* [Keflex CAP*] 500 mg PO TID #21 cap Ciprofloxacin 0.3% OPTH.JARROD* [Cipro 0.3% Opth*] 1 drop LEFT EYE Q2H #1 btl Fluticasone NASAL SPRAY 50MCG* [Flonase NASAL SPRAY 50MCG*] 2 spray BOTH NARES DAILY #1 btl Patient Education Materials: Sinusitis (ED), Conjunctivitis (ED) Referrals: Danae Ross MD [Primary Care Provider] - 3 Days Conor Lazaro MD [Medical Doctor] - If Needed Additional Instructions: 1- Please increase fluid intake and rest. take full course of antibiotics to avoid resistance. Take yogurts w/ probiotics or Culturelle to protect your GI system 2-Use Flonase as directed to help drain fluid. Also buy saline drops to clear sinuses 3-Please f/u w/ your PCP in 3 days if symptoms do not improve for further management and treatment 4-Please apply ophthalmic drops as instructed and finish the full course of treatment to avoid recurrent infection. Encourage hand washing to avoid spread. 5-If you do not improve or if symptoms worsen please f/u with shank boner DR Lazaro for further evaluation and treatment - Billing Disposition and Condition Condition: STABLE Disposition: Home
== END 2019-10-02 11:06 | disposition home or self-care (01) ==
LOC: UCEAST 10:07
DX: J01.90 Acute sinusitis, unspecified (principal); H10.9 Unspecified conjunctivitis; R05 Cough; H92.03 Otalgia, bilateral; B96.89 Other specified bacterial agents as the cause of diseases classified elsewhere; Z88.0 Allergy status to penicillin; Z88.1 Allergy status to other antibiotic agents; Z88.2 Allergy status to sulfonamides; Z88.8 Allergy status to other drugs, medicaments and biological substances
CPT/HCPCS: 99212; G0463